=== PATIENT | female | born 2000 | race Caucasian/White ===

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

== ENCOUNTER 2020-08-02 14:26 | Emergency (ER) | payer OTHER, MEDICAID ==
[2020-08-02 14:37] VITALS: BP 139/84; PULSE 102
--- NOTE | 2020-08-02 15:11 | CR ---
Right fourth finger: 4 views of the right fourth finger were obtained. Comparison: No previous finger or hand exam is available. Displaced tuft fracture is seen within the distal phalanx of the fourth finger. Soft tissue swelling is also noted. No proximal bony abnormality is appreciated. Impression: 1. Displaced tuft fracture within the distal fourth finger. 2. Soft tissue swelling. Diagnostic code #3
[2020-08-02] MEDS ORDERED: Bupivacaine 0.5% 10 ML SDV INJECT ONE (15:32)
--- NOTE | 2020-08-02 15:55 | EDM.PDOC ---
ED HPI GENERAL MEDICAL PROBLEM - General Chief Complaint: Upper Extremity Injury/Pain Stated Complaint: RT HAND RING FINGER Time Seen by Provider: 08/02/20 14:36 Source of Information: Reports: Patient History Limitations: Reports: No Limitations - History of Present Illness INITIAL COMMENTS - FREE TEXT/NARRATIVE: 20-year-old female presents to the emergency department with complaints of right ring finger injury. 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 Right Finger-Ring Pain Score (Numeric/FACES): 9 - Related Data Allergies Allergy/AdvReac Type Severity Reaction Status Date / Time Dairy Products Allergy Abdominal Verified 08/02/20 14:36 Cramps Penicillins Allergy Rash Verified 08/02/20 14:36 Home Meds: Home Meds Amoxicillin/Potassium Clav [Augmentin 500-125 Tablet] 1 each PO BID #28 tablet 08/02/20 [Rx] Past Medical History HEENT History: Reports: None Cardiovascular History: Reports: None Respiratory History: Reports: None Gastrointestinal History: Reports: GERD, Other (See Below) Other Gastrointestinal History: Lactose intolerant, unexplained stomach issues for years Genitourinary History: Reports: None [employer] History: Reports: Musculoskeletal History: Reports: None Neurological History: Reports: None Psychiatric History: Reports: Anxiety, Depression Other Psychiatric History: on zoloft and lexapro at various times between ages [age]. Presently denies any issues. Endocrine/Metabolic History: Reports: None Hematologic History: Reports: None Immunologic History: Reports: None Oncologic (Cancer) History: Reports: None Dermatologic History: Reports: None - Infectious Disease History Infectious Disease History: Reports: None - Past Surgical History Head Surgeries/Procedures: Reports: None HEENT Surgical History: Reports: Tonsillectomy Cardiovascular Surgical History: Reports: None Respiratory Surgical History: Reports: None GI Surgical History: Reports: EGD Female Surgical History: Reports: None Endocrine Surgical History: Reports: None Neurological Surgical History: Reports: None Musculoskeletal Surgical History: Reports: None Oncologic Surgical History: Reports: None Social & Family History - Family History Family Medical History: No Pertinent Family History - Tobacco Use Tobacco Use Status *Q: Current Every Day Tobacco User Years of Tobacco use: 3 Packs/Tins Daily: 0.2 - Caffeine Use Caffeine Use: Reports: Soda - Recreational Drug Use Recreational Drug Use: No Review of Systems - Review of Systems Review Of Systems: Comprehensive ROS is negative, except as noted in HPI. ED EXAM, GENERAL - Physical Exam Exam: See Below Exam Limited By: No Limitations General Appearance: Alert, WD/WN, Mild Distress Eye Exam: Bilateral Eye: PERRL Ears: Hearing Grossly Normal Nose: Normal Inspection Throat/Mouth: Normal Inspection, Normal Voice, No Airway Compromise Head: Atraumatic, Normocephalic Neck: Normal Inspection, Supple, Non-Tender, Full Range of Motion Respiratory/Chest: No Respiratory Distress, Lungs Clear, Normal Breath Sounds, No Accessory Muscle Use, Chest Non-Tender Cardiovascular: Normal Peripheral Pulses, Regular Rate, Rhythm, No Edema, No Murmur Peripheral Pulses: 2+: Radial (L), Radial (R) GI/Abdominal: Normal Bowel Sounds, Soft, Non-Tender, No Distention (Female) Exam: Deferred Rectal (Female) Exam: Deferred Back Exam: Normal Inspection, Full Range of Motion Extremities: Normal Inspection, Normal Range of Motion, Non-Tender, No Pedal Edema, Normal Capillary Refill Neurological: Alert, Oriented, Normal Cognition Psychiatric: Normal Affect, Normal Mood Skin Exam: Warm, Dry, Normal Color, No Rash, Wound/Incision ED TRAUMA EXTREMITY PROCEDURES - Laceration/Wound Repair Right Distal Digit - 4th (Ring) Appearance: Subcutaneous, Irregular Anesthetic Type: Digital Local Anesthesia - Lidocaine (Xylocaine): Other (Bupivicaine 0.5%) Local Anesthesia - Bupivicaine (Marcaine): 0.5% Plain Local Anesthetic Volume: 5cc Skin Prep: Saline Exploration/Debridement/Repair: Multiple Flaps Aligned Closed With: Sutures Suture Size: 4-0 # of Sutures: 13 Suture Type: Nylon Course - Vital Signs Text/Narrative:: 20-year-old female with complaints of injury to right ring finger after she was attempting to move a washing machine at her work and dropped a washing machine on the finger. Patient sustained an open fracture to the right ring finger at the tip. Last Recorded V/S: Last Vital Signs Temp 98.7 F 08/02/20 14:34 Pulse 102 H 08/02/20 14:34 Resp 16 08/02/20 14:34 BP 139/84 08/02/20 14:34 Pulse Ox 96 08/02/20 14:34 - Orders/Labs/Meds Meds: Medications Discontinued Medications Generic Name Dose Route Start Last Admin Trade Name Karan PRN Reason Stop Dose Admin Bupivacaine HCl 10 ml 08/02/20 15:32 08/02/20 15:44 Sensorcaine-Mpf 0.5% INJECT 08/02/20 15:33 10 ml ONETIME ONE Administration Departure - Departure Time of Disposition: 16:44 Disposition: Home, Self-Care 01 Condition: Fair Clinical Impression: Open fracture of distal phalanx of ring finger Qualifiers: Encounter type: initial encounter Fracture alignment: displaced Laterality: right Qualified Code(s): S62.634B - Displaced fracture of distal phalanx of right ring finger, initial encounter for open fracture - Discharge Information Prescriptions: Amoxicillin/Potassium Clav [Augmentin 500-125 Tablet] 1 each PO BID #28 tablet Referrals: PCP,None [Primary Care Provider] - Forms: ED Department Discharge Additional Instructions: You were seen in the ED with complaints of crush injury to right ring finger with laceration and open fracture. Xrays confirmed that the finger is broken. I spoke with Dr. Farmer at [facility] and he looked at your xrays. States that he will place a pin in that finger on Sunday. They will be calling you to schedule this appointment. Sutures were placed in the finger. You will need to take antibiotics twice daily for 14 days. May take a probiotic with this or eat yogurt. Keep the finger clean and dry. May wash with mild soapy water and pat dry. Sepsis Event Note (ED) - Evaluation Sepsis Screening Result: No Definite Risk - Focused Exam Vital Signs: Vital Signs Temp Pulse Resp BP Pulse Ox 08/02/20 14:34 98.7 F 102 H 16 139/84 96
== END 2020-08-02 16:55 | disposition home or self-care (01) ==
LOC: JD.ED 14:26
DX: S62.634B Displaced fracture of distal phalanx of right ring finger, initial encounter for open fracture (principal); Z91.011 Allergy to milk products; Z88.0 Allergy status to penicillin; Z72.0 Tobacco use; W20.8XXA Other cause of strike by thrown, projected or falling object, initial encounter; Y99.0 Civilian activity done for income or pay
CPT/HCPCS: 12002; 73140; 99283; J3490

== ENCOUNTER 2022-04-26 23:00 | Inpatient (IN) | payer MEDICAID ==
[2022-04-26] MEDS ORDERED: Nalbuphine HCl 10 MG/ 1ML Amp IVPUSH PRN (23:28)
[2022-04-26] MEDS ORDERED: Ondansetron 4 MG/2 ML SDV IVPUSH PRN (23:28)
[2022-04-26] MEDS ORDERED: Sodium Chloride 0.9% 10 ML Syringe FLUSH PRN (23:28)
[2022-04-26] MEDS: Lactated Ringers 1,000 ML IV SCH (23:35)
[2022-04-27] MEDS ORDERED: Bupivacaine 0.25% 10 ML SDV ONE
[2022-04-27] MEDS ORDERED: diphenhydrAMINE 50 MG/ML SDV IVPUSH PRN (00:05)
[2022-04-27] MEDS ORDERED: fentaNYL 100 MCG/2 ML SDV EPIDUR PRN (00:05)
[2022-04-27] MEDS ORDERED: Bupivacaine/fentaNYL/NS 100 ML Bag EPIDUR PRN (00:05)
[2022-04-27] MEDS ORDERED: ePHEDrine 50 MG/ML SDV IVPUSH PRN (00:05)
[2022-04-27] MEDS: Lactated Ringers 1,000 ML IV SCH ×2 (00:09→00:59)
[2022-04-27] MEDS ORDERED: Oxytocin/Lactated Ringers 10 UNIT/1,000 ML BAG IV ONE (02:47)
[2022-04-27] MEDS ORDERED: Oxytocin/Lactated Ringers 10 UNIT/1,000 ML BAG IV SCH (03:00)
[2022-04-27] MEDS ORDERED: Benzocaine/Menthol 20%-0.5% Spray 78 GM Cannister TOP PRN (03:15)
[2022-04-27] MEDS ORDERED: Ibuprofen 600 MG Tab PO PRN (03:15)
[2022-04-27] MEDS ORDERED: Witch Hazel Medicated Pads 40/Jar TOP PRN (03:15)
[2022-04-27] MEDS ORDERED: Acetaminophen 325 MG Tab PO PRN (03:15)
[2022-04-27] MEDS ORDERED: Docusate Sodium 100 MG Cap PO PRN (03:15)
[2022-04-27] MEDS ORDERED: Sodium Chloride 0.9% 10 ML Syringe FLUSH SCH (09:00)
[2022-04-28 15:04] VITALS: BP 112/71; PULSE 64
== END 2022-04-28 12:00 | disposition home or self-care (01) | DRG 807 ==
LOC: JD.OBCHECK 23:00 → JD.OB 23:28 → JD.OBCHECK 23:29 → JD.OB 04-27 00:04 → OBSVTOIN 04-27 02:54 → JD.OB 04-27 02:55
PROVIDERS: ADMIT Obstetrics & Gynecology; ATTEND Obstetrics & Gynecology
PROC: 10E0XZZ Delivery of Products of Conception, External Approach (ICD-10-PCS; principal; 2022-04-27)
PROC: 3E0R3BZ Introduction of Anesthetic Agent into Spinal Canal, Percutaneous Approach (ICD-10-PCS; 2022-04-27)
PROC: 10907ZC Drainage of Amniotic Fluid, Therapeutic from Products of Conception, Via Natural or Artificial Opening (ICD-10-PCS; 2022-04-27)
DX: O80 Encounter for full-term uncomplicated delivery (principal); Z37.0 Single live birth; Z3A.38 38 weeks gestation of pregnancy; Z88.0 Allergy status to penicillin; Z91.011 Allergy to milk products; Z87.891 Personal history of nicotine dependence
CPT/HCPCS: 01967; 36415; 51702; 59025; 59409; 85025; 86592; J2590; J3010; J3490; J7120